=== PATIENT | male | born 1985 | race Caucasian/White ===

== ENCOUNTER 2022-10-28 11:59 | Inpatient (IN) | payer MEDICAID ==
[~2022-10-28] VITALS: Ht 182.9 cm; Wt 90.3 kg
[2022-10-28 12:23] VITALS: BP 117/73
[2022-10-28] MEDS ORDERED: KETOROLAC 30 MG/ML VIAL IVP ONE (12:50)
[2022-10-28] MEDS ORDERED: ONDANSETRON 4 MG/2 ML VIAL IVP ONE (12:50)
[2022-10-28] MEDS ORDERED: NACL 0.9% 1,000 ML IV ONE (12:50)
[2022-10-28] MEDS ORDERED: ONDANSETRON 4 MG/2 ML VIAL ONE ×2 (12:54→16:05)
[2022-10-28] MEDS ORDERED: KETOROLAC 30 MG/ML VIAL ONE ×2 (12:55→16:05)
--- NOTE | 2022-10-28 13:00 | NUR ---
blood drawn from iv 18g left ac and given to lab
--- NOTE | 2022-10-28 13:16 | NUR ---
37 y/o male bib self from home, c/o bl flank pain, abdominal pain, n/v that started this morning. pt is a&ox4, cambodian speaking, ambulates with steady gait. pt states he tried to take OTC medication with no relief, 8/ pain comes and goes. pmh: denies nka
[2022-10-28 13:17] LABS: BASOPHILS # (AUTO) 0.1 K/uL (0.00-0.22); BASOPHILS % (AUTO) 0.4 % (0.0-2.0); EOSINOPHILS % (AUTO) 0.1 % (0.0-4.0); HEMATOCRIT 41.7 % (36-52); HEMOGLOBIN 14.1 g/dL (12.0-18.0); LYMPHOCYTES # (AUTO) 0.7 K/uL (2.0-11.5); LYMPHOCYTES % (AUTO) 4.7 % (20.5-51.1); MEAN CORPUSCULAR HEMOGLOBIN 29 pg (27-31); MEAN CORPUSCULAR HGB CONC 34 g/dL (33-37); MEAN CORPUSCULAR VOLUME 87.1 fL (80-94); MONOCYTES # (AUTO) 0.6 K/uL (0.8-1.0); MONOCYTES % (AUTO) 3.8 % (1.7-9.3); NEUTROPHILS # (AUTO) 13.1 K/uL (1.8-7.7); PLATELET COUNT (AUTO) 260 K/uL (140-450); RED BLOOD CELL COUNT(AUTO) 4.79 MIL/uL (4.20-6.10); RED CELL DISTRIBUTION WIDTH 13.5 % (11.6-13.7); WHITE BLOOD COUNT (AUTO) 14.4 K/uL (4.8-10.8)
[2022-10-28 13:31] LABS: ALBUMIN 4.1 g/dL (3.4-5.0); ANION GAP 13.7 (8-16); CARBON DIOXIDE 24.9 mmol/L (21-32); CREATININE 0.9 mg/dL (0.6-1.3); POTASSIUM 3.6 mmol/L (3.5-5.1); TOTAL BILIRUBIN 0.8 mg/dL (0.0-1.0)
--- NOTE | 2022-10-28 13:38 | NUR ---
ASSUMED CARE, PT RETURN FR CT, PAIN IMPROVED
[2022-10-28 13:51] LABS: APPEARANCE,URINE CLEAR (CLEAR); BILIRUBIN,URINE NEGATIVE (NEGATIVE); BLOOD, URINE NEGATIVE (NEGATIVE); COLOR,URINE YELLOW (YELLOW); LEUKOCYTE ESTERASE ,URINE NEGATIVE (NEGATIVE); NITRITE, URINE NEGATIVE (NEGATIVE); PH,URINE 7.5 (5.0-9.0); UGLUCOSE NEGATIVE (NEGATIVE)
--- NOTE | 2022-10-28 13:56 | NUR ---
TESTICULAR U/S IN PROGRESS
[2022-10-28] MEDS ORDERED: PIPERACILLIN/TAZOBACTAM 3.375 GM in DEXTROSE 5% 50 ML IV ONE (14:00)
[2022-10-28] MEDS ORDERED: PIPERACILLIN/TAZOBACTAM 3.375 GM VIAL IV ONE (14:54)
--- NOTE | 2022-10-28 15:04 | NUR ---
SPOKE WITH DR HUMPHREYS ,SURGERY, ORDER RECEIVED
[2022-10-28] MEDS ORDERED: LIDOCAINE 1% 500 MG/50 ML VIAL ONE (15:47)
[2022-10-28] MEDS ORDERED: BUPIVACAINE-MPF/EPI 0.25% 30 ML VIAL INJ ONE (15:47)
[2022-10-28] MEDS ORDERED: DESFLURANE 240 ML BTL INH ONE (15:52)
[2022-10-28] MEDS ORDERED: fentaNYL citrate 0.05 MG/ML VIAL ONE (16:04)
[2022-10-28] MEDS ORDERED: PROPOFOL 200 MG/20 ML VIAL IV ONE (16:05)
[2022-10-28] MEDS ORDERED: SUCCINYLCHOLINE CHLORIDE 200 MG/10 ML VIAL IVP ONE (16:05)
[2022-10-28] MEDS ORDERED: ROCURONIUM 50 MG/5 ML VIAL IV ONE (16:05)
[2022-10-28] MEDS ORDERED: DEXAMETHASONE 4 MG/ML VIAL ONE (16:05)
[2022-10-28] MEDS ORDERED: HYDROmorphone PFS 2 MG/ML SYR ONE (16:06)
[2022-10-28] MEDS ORDERED: SUGAMMADEX SODIUM 200 MG/2 ML VIAL IV ONE (16:12)
[2022-10-28] MEDS ORDERED: HYDROmorphone 1 MG/ML AMP IVP PRN ×2 (16:35)
[2022-10-28] MEDS ORDERED: ONDANSETRON 4 MG/2 ML VIAL IVP PRN (16:35)
[2022-10-28] MEDS ORDERED: HYDROcodone/APAP 5/325 MG 1 TAB TAB PO PRN (16:35)
--- NOTE | 2022-10-28 16:48 | NUR ---
Patient's Plan of Care was discussed and reviewed with ELECTRICAL DESIGNER: VALERIA GROSS
[2022-10-28 17:00] VITALS: BP 126/80
--- NOTE | 2022-10-28 17:00 | NUR ---
PT ARRIVED TO [facility] UNIT VIA GURNEY FROM OR. PT IS AWAKE, AOX4. ABLE TO VERBALIZE NEEDS. RESPIRATIONS EVEN AND UNLABORED ON RA. SKIN WARM AND DRY. IV ON L ARM 18G, SL. PT COMPLAINS OF PAIN ON ABDOMEN INCISIONS BUT STATES "I WANT TO WAIT A LITTLE WHILE BEFORE I GET MEDICATION FOR THE PAIN." NO DISTRESS NOTED. PT WAS ORIENTED TO UNIT, ROOM, RESTROOM AND CALL LIGHT. ALL SAFETY PRECAUTIONS IN PLACE. CALL LIGHT WITHIN REACH. VS: TEMP 97.1, HR 84, BP 126/80, RESPIRATIONS 16 AND O2 SATURATING AT 99%.
--- NOTE | 2022-10-28 19:27 | NUR ---
ENDORSED PT TO FURNACE RELINER NURSE FOR CONTINUITY OF CARE. PT IS STABLE.
--- NOTE | 2022-10-28 19:28 | NUR ---
RECEIVED REPORT FROM DAY SHIFT NURSE. PATIENT RESTING COMFORTABLY WATCHING TV. NO ACUTE DISTRESS NOTED. BREATHING REGULAR NON LABORED. NO COMPLAINTS OF PAIN. AMBULATORY. CALL LIGHT ON EASY REACH.
[2022-10-28 20:00] VITALS: BP 125/84
[2022-10-29] MEDS ORDERED: POTASSIUM CHLORIDE 10 MEQ TABER PO PRN (00:45)
[2022-10-29] MEDS ORDERED: ONDANSETRON 4 MG/2 ML VIAL IVP PRN (00:45)
[2022-10-29] MEDS ORDERED: HYDROcodone/APAP 7.5/325 MG 1 TAB PO PRN (00:45)
[2022-10-29] MEDS ORDERED: ACETAMINOPHEN 325 MG TAB PO PRN (00:45)
[2022-10-29] MEDS ORDERED: MAG SULF 2000 MG/WATER PREMIX 50 ML IV PRN (00:45)
[2022-10-29 04:00] VITALS: BP 108/69
[2022-10-29 05:25] LABS: BASOPHILS % (AUTO) 0.1 % (0.0-2.0); HEMATOCRIT 38.9 % (36-52); LYMPHOCYTES # (AUTO) 1.4 K/uL (2.0-11.5); MEAN CORPUSCULAR HEMOGLOBIN 29 pg (27-31); MEAN CORPUSCULAR HGB CONC 34 g/dL (33-37); MEAN CORPUSCULAR VOLUME 87.1 fL (80-94); MONOCYTES # (AUTO) 0.8 K/uL (0.8-1.0); MONOCYTES % (AUTO) 6.5 % (1.7-9.3); NEUTROPHILS # (AUTO) 10.3 K/uL (1.8-7.7); NEUTROPHILS % (AUTO) 82.4 % (42.2-75.2); PLATELET COUNT (AUTO) 265 K/uL (140-450); RED BLOOD CELL COUNT(AUTO) 4.46 MIL/uL (4.20-6.10); RED CELL DISTRIBUTION WIDTH 13.2 % (11.6-13.7); WHITE BLOOD COUNT (AUTO) 12.5 K/uL (4.8-10.8)
[2022-10-29 06:00] LABS: ANION GAP 10.9 (8-16); CARBON DIOXIDE 25.9 mmol/L (21-32); CREATININE 0.8 mg/dL (0.6-1.3); POTASSIUM 3.8 mmol/L (3.5-5.1)
[2022-10-29 06:12] LABS: AMYLASE 44 U/L (25-115); CHOL/HDL RATIO 3.2 (1-4.5); FREE T4 (FREE THYROXINE) 0.89 ng/dL (0.76-1.46); HDL CHOLESTEROL 52 mg/dL (40-60); LDL (CALC) 108 mg/dL (60-100); LIPASE 54 U/L (73-393); MAGNESIUM 1.8 mg/dL (1.8-2.4); PHOSPHORUS 4.6 mg/dL (2.5-4.9); THYROID STIMULATING HORMONE 0.57 uIU/mL (0.34-3.74); TRIGLYCERIDES 35 mg/dL (30-150)
--- NOTE | 2022-10-29 07:23 | NUR ---
ENDORSED PATIENT TO AM NURSE FOR CONTINUITY OF CARE. PATIENT IN STABLE CONDITION.
--- NOTE | 2022-10-29 07:24 | NUR ---
RECEIVED REPORT FROM SLED MAKER NURSE, GABE, FOR CONTINUITY OF CARE. PT IN BED AT THIS TIME, ON HIS CELL PHONE. RESPIRATIONS ARE EVEN AND UNLABORED ON ROOM AIR. NO SIGNS OF DISTRESS NOTED. PT IS ALERT AND ORIENTED X4, ABLE TO VERBALIZE NEEDS, ABLE TO FOLLOW COMMANDS. PT IS GHANAIAN SPEAKING. PT IS 1 DAY S/P LAP APPENDECTOMY. PT HAS 3 SURGICAL SITES, CLOSED WITH DERMABOND, OPEN TO AIR. NO DRAINAGE NOTED, NO PAIN NOTED. PT ABD IS NONTENDER, NONDISTENDED WITH BOWEL SOUNDS PRESENT. PT IS CONTINENT OF BOWEL AND BLADDER, ABLE TO AMBULATE INDEPENDENTLY. PT HAS IV TO L ARM, 18G. PT IS NPO AT THIS TIME, WILL CLARIFY WITH HOSPITALIST FOLLOWING PT. CALL LIGHT WITHIN REACH. ALL SAFETY MEASURES IN PLACE.
[2022-10-29 08:00] VITALS: BP 105/69
[2022-10-29] MEDS: PIPERACILLIN/TAZOBACTAM 3.375 GM in DEXTROSE 5% 50 ML IV SCH ×2 (08:02→13:34)
[2022-10-29] MEDS: NACL 0.9% 1,000 ML IV SCH ×2 (08:02→10:48)
--- NOTE | 2022-10-29 08:02 | NUR ---
MEDICATION ZOSYN NOT ADMINISTERED BY HAT BLOCK MAKER AT 0500. CALLED PHARMACY, PER PHARMACY, OK TO ADMINISTER NOW. PHARMACY WILL ADJUST NEXT SCHEDULED DOSE. ALSO, DR PATEL MADE AWARE OF PT NPO ORDER. NEW DIETARY ORDERS RECEIVED.
--- NOTE | 2022-10-29 08:50 | NUR ---
PATIENT HAS BEEN SCREENED AND CATEGORIZED LOW NUTRITION RISK. PATIENT WILL BE SEEN WITHIN 7 DAYS OF ADMISSION. 11/04/22 REVIEWED BY SHAHEEN BARDALES RD
[2022-10-29] MEDS ORDERED: DOCUSATE SODIUM 100 MG GELCAP PO SCH (09:00)
[2022-10-29] MEDS ORDERED: PANTOPRAZOLE 40 MG INJ VIAL IVP SCH (09:00)
[2022-10-29] MEDS ORDERED: IBUP-1842 PO (10:52)
[2022-10-29] MEDS ORDERED: DOCU-299 PO (10:52)
--- NOTE | 2022-10-29 11:40 | NUR ---
DID ROUNDS ON PT. PT WALKING AROUND IN ROOM. DENIES ANY PAIN. STATES DR TOLD HIM HE WOULD BE DISCHARGED TODAY. INFORMED PT THAT WE NEED DISCHARGE ORDER BEFORE PT CAN DISCHARGE. PT VERBALIZED UNDERSTANDING.
--- NOTE | 2022-10-29 13:06 | NUR ---
PT CALLED NURSE TO ASK HER ABOUT HIS US OF TESTICLES. PT STATED "KEENA HAD THIS SMALL BUMP ON MY TESTICLE AND IT IS A BIT PAINFUL. IS THERE ANYTHING YOU GUYS ARE GOING TO DO ABOUT IT HERE". WENT OVER US RESULTS WITH PT. PT STATES HE WILL FOLLOW UP WITH HIS PCP ONCE HE DISCHARGES.
--- NOTE | 2022-10-29 15:10 | NUR ---
PT CONTINUES TO ASK WHEN HE IS GOING TO BE DISCHARGED. INFORMED PT THAT WE ARE AWAITING DR DISCHARGE ORDER. PT VERBALIZED UNDERSTANDING.
[2022-10-29 16:30] VITALS: BP 123/78
--- NOTE | 2022-10-29 17:11 | NUR ---
PT HAS DISCHARGE ORDER IN PLACE. WENT OVER DISCHARGE WITH PT. ANSWERED ALL QUESTIONS. PT SIGNED ALL PAPERWORK. REMOVED IV. IV CATHETER INTACT. ALL BELONGINGS TAKEN UPON DISCHARGE. PT DISCHARGED HOME WITH FAMILY.
== END 2022-10-29 17:10 | disposition home or self-care (01) | DRG 234 ==
LOC: MED 11:59 → MTU 14:25
PROC: 0DTJ4ZZ Resection of Appendix, Percutaneous Endoscopic Approach (ICD-10-PCS; principal; 2022-10-29)
DX: K35.80 Unspecified acute appendicitis (principal); R65.10 Systemic inflammatory response syndrome (SIRS) of non-infectious origin without acute organ dysfunction; N50.3 Cyst of epididymis; Z20.822 Contact with and (suspected) exposure to COVID-19; Z79.1 Long term (current) use of non-steroidal anti-inflammatories (NSAID); Z79.899 Other long term (current) drug therapy
CPT/HCPCS: 36415; 71045; 76870; 80048; 80053; 81003; 82150; 82374; 83036; 83605; 83690; 83735; 83880; 84100; 84439; 84443; 84484; 85025; 85610; 85730; 87040; 87081; 87491; 88304; 93005; 96361; 96365; 96375; 99285; C9113; J0330; J1100; J1170; J1644; J1885; J2001; J2405; J2543; J2704; J3010; J3490; J7030; J7060; J7120; Q0092

== ENCOUNTER 2023-05-25 10:49 | Emergency (ER) | payer MEDICAID ==
[~2023-05-25] VITALS: Ht 182.9 cm; Wt 92.5 kg
[~2023-05-25 10:49] MED LIST: DOCU-299 PO; IBUP-1842 PO
[2023-05-25 11:20] VITALS: BP 120/81; PULSE 81; RESP 14; TEMP 97; O2SAT 97
[2023-05-25] MEDS ORDERED: CAPS1ADH5 TP ×2 (14:15→14:19)
[2023-05-25] MEDS ORDERED: KETOROLAC 30 MG/ML VIAL IM ONE (14:15)
[2023-05-25] MEDS ORDERED: NAPR-1704 PO ×2 (14:15→14:19)
[2023-05-25 14:35] VITALS: BP 120/81; PULSE 81; RESP 14; TEMP 97; O2SAT 97
== END 2023-05-25 14:35 | disposition home or self-care (01) ==
LOC: MED 10:49
DX: S20.212A Contusion of left front wall of thorax, initial encounter (principal); Z79.899 Other long term (current) drug therapy; Z79.1 Long term (current) use of non-steroidal anti-inflammatories (NSAID); W01.0XXA Fall on same level from slipping, tripping and stumbling without subsequent striking against object, initial encounter; Y92.89 Other specified places as the place of occurrence of the external cause; Y93.89 Activity, other specified; Y99.8 Other external cause status
CPT/HCPCS: 71101; 96372; 99283; J1885

== ENCOUNTER 2023-07-30 19:49 | Emergency (ER) | payer MEDICAID, OTHER ==
[~2023-07-30] VITALS: Ht 180.3 cm; Wt 90.7 kg
[~2023-07-30 19:49] MED LIST changes: +CAPS1ADH5 TP; +NAPR-1704 PO
[2023-07-30 20:10] VITALS: BP 145/104; PULSE 88; RESP 16; TEMP 97.1; O2SAT 99
[2023-07-30 20:35] VITALS: O2SAT 99
[2023-07-30] MEDS: ALUMINUM HYD/MAG/SIMETHICONE 30 ML UDC PO ONE (20:44)
[2023-07-30 20:56] LABS: APPEARANCE,URINE CLEAR (CLEAR); BILIRUBIN,URINE NEGATIVE (NEGATIVE); BLOOD, URINE NEGATIVE (NEGATIVE); COLOR,URINE YELLOW (YELLOW); LEUKOCYTE ESTERASE ,URINE NEGATIVE (NEGATIVE); NITRITE, URINE NEGATIVE (NEGATIVE); PROTEIN,URINE NEGATIVE (NEGATIVE); UGLUCOSE NEGATIVE (NEGATIVE); UROBILINOGEN,URINE 0.2 EU/dL (0.2 - 1)
[2023-07-30 20:58] LABS: BASOPHILS # (AUTO) 0.1 K/uL (0.00-0.22); BASOPHILS % (AUTO) 1.2 % (0.0-2.0); EOSINOPHILS # (AUTO) 0.2 K/uL (0-0.4); EOSINOPHILS % (AUTO) 2.8 % (0.0-4.0); HEMATOCRIT 45.9 % (36-52); HEMOGLOBIN 15.9 g/dL (12.0-18.0); LYMPHOCYTES % (AUTO) 37.4 % (20.5-51.1); MEAN CORPUSCULAR HEMOGLOBIN 30 pg (27-31); MEAN CORPUSCULAR HGB CONC 35 g/dL (33-37); MEAN CORPUSCULAR VOLUME 86.4 fL (80-94); MONOCYTES # (AUTO) 0.6 K/uL (0.8-1.0); MONOCYTES % (AUTO) 7.2 % (1.7-9.3); NEUTROPHILS # (AUTO) 4.1 K/uL (1.8-7.7); NEUTROPHILS % (AUTO) 51.4 % (42.2-75.2); PLATELET COUNT (AUTO) 317 K/uL (140-450); RED BLOOD CELL COUNT(AUTO) 5.31 MIL/uL (4.20-6.10); RED CELL DISTRIBUTION WIDTH 13.5 % (11.6-13.7); WHITE BLOOD COUNT (AUTO) 7.9 K/uL (4.8-10.8)
[2023-07-30] MEDS: ONDANSETRON 4 MG ODT PO ONE (21:08)
[2023-07-30 21:14] LABS: ANION GAP 12.5 (8-16); CREATININE 1.1 mg/dL (0.6-1.3); POTASSIUM 3.5 mmol/L (3.5-5.1)
[2023-07-30 21:17] LABS: ALANINE AMINOTRANSFERASE 43 U/L (12-78); ALBUMIN 4.2 g/dL (3.4-5.0); ALKALINE PHOSPHATASE 65 U/L (50-136); ASPARTATE AMINOTRANSFERASE 23 U/L (15-37); BILIRUBIN,DIRECT 0.1 mg/dL (0.0-0.3); LIPASE 45 U/L (16-77); TOTAL BILIRUBIN 0.4 mg/dL (0.0-1.0)
[2023-07-30] MEDS ORDERED: FAMO-90 PO (21:46)
[2023-07-30] MEDS ORDERED: SUCR1TAB35 PO (21:46)
[2023-07-30] MEDS: KETOROLAC 30 MG/ML VIAL IM ONE (21:50)
[2023-07-30 22:10] VITALS: BP 135/88; PULSE 71; RESP 16; TEMP 98.2; O2SAT 99
== END 2023-07-30 22:10 | disposition home or self-care (01) ==
LOC: MED 19:49
DX: K29.70 Gastritis, unspecified, without bleeding (principal); R07.81 Pleurodynia; Z79.899 Other long term (current) drug therapy
CPT/HCPCS: 36415; 71045; 76870; 80048; 80076; 81003; 83690; 84484; 85025; 93005; 96372; 99285; J1885; Q0092; Q0162

== ENCOUNTER 2023-08-24 23:09 | Emergency (ER) | payer OTHER ==
[~2023-08-24] VITALS: Ht 182.9 cm; Wt 92.5 kg
[~2023-08-24 23:09] MED LIST changes: +FAMO-90 PO; +SUCR1TAB35 PO
[2023-08-24 23:30] VITALS: O2SAT 98
[2023-08-24 23:35] VITALS: BP 117/82; PULSE 78; RESP 17; TEMP 97.8; O2SAT 97
[2023-08-25 01:00] LABS: APPEARANCE,URINE CLEAR (CLEAR); BILIRUBIN,URINE NEGATIVE (NEGATIVE); BLOOD, URINE NEGATIVE (NEGATIVE); COLOR,URINE YELLOW (YELLOW); LEUKOCYTE ESTERASE ,URINE NEGATIVE (NEGATIVE); NITRITE, URINE NEGATIVE (NEGATIVE); PROTEIN,URINE NEGATIVE (NEGATIVE); UGLUCOSE NEGATIVE (NEGATIVE); UROBILINOGEN,URINE 0.2 EU/dL (0.2 - 1)
[2023-08-25 01:04] LABS: ANION GAP 10.3 (8-16); CALCIUM 8.5 mg/dL (8.5-10.1); CARBON DIOXIDE 28.4 mmol/L (21-32); CREATININE 1.1 mg/dL (0.6-1.3); POTASSIUM 3.7 mmol/L (3.5-5.1)
[2023-08-25 01:31] LABS: BASOPHILS # (AUTO) 0.1 K/uL (0.00-0.22); BASOPHILS % (AUTO) 1.1 % (0.0-2.0); EOSINOPHILS # (AUTO) 0.4 K/uL (0-0.4); HEMOGLOBIN 14.2 g/dL (12.0-18.0); LYMPHOCYTES % (AUTO) 46.9 % (20.5-51.1); MEAN CORPUSCULAR HEMOGLOBIN 29 pg (27-31); MEAN CORPUSCULAR HGB CONC 34 g/dL (33-37); MEAN CORPUSCULAR VOLUME 86.9 fL (80-94); MONOCYTES # (AUTO) 0.6 K/uL (0.8-1.0); MONOCYTES % (AUTO) 8.7 % (1.7-9.3); NEUTROPHILS # (AUTO) 2.4 K/uL (1.8-7.7); NEUTROPHILS % (AUTO) 37.3 % (42.2-75.2); PLATELET COUNT (AUTO) 266 K/uL (140-450); RED BLOOD CELL COUNT(AUTO) 4.84 MIL/uL (4.20-6.10); RED CELL DISTRIBUTION WIDTH 13.2 % (11.6-13.7); WHITE BLOOD COUNT (AUTO) 6.4 K/uL (4.8-10.8)
[2023-08-25] MEDS ORDERED: NAPR-54 PO (02:16)
[2023-08-25] MEDS: KETOROLAC 30 MG/ML VIAL IM ONE (02:34)
== END 2023-08-25 02:59 | disposition home or self-care (01) ==
LOC: MED 23:09
DX: N43.3 Hydrocele, unspecified (principal); Z79.899 Other long term (current) drug therapy
CPT/HCPCS: 36415; 74176; 76870; 80048; 81003; 85025; 96372; 99285; J1885

== ENCOUNTER 2023-11-07 15:01 | Emergency (ER) | payer OTHER ==
[~2023-11-07] VITALS: Ht 182.9 cm; Wt 91.6 kg
[~2023-11-07 15:01] MED LIST changes: +NAPR-337 PO; +SUCR-3 PO; -SUCR1TAB35 PO
[2023-11-07 15:59] VITALS: BP 128/102; PULSE 106; RESP 24; TEMP 98; O2SAT 99
[2023-11-07] MEDS ORDERED: ATA25 PO (17:18)
[2023-11-07 17:44] VITALS: BP 129/91; PULSE 93; RESP 18; O2SAT 100
== END 2023-11-07 17:44 | disposition home or self-care (01) ==
LOC: MED 15:01
DX: F41.9 Anxiety disorder, unspecified (principal); F10.10 Alcohol abuse, uncomplicated; F14.10 Cocaine abuse, uncomplicated; Z79.899 Other long term (current) drug therapy; Z90.49 Acquired absence of other specified parts of digestive tract; Y90.9 Presence of alcohol in blood, level not specified
CPT/HCPCS: 93005; 99283

== ENCOUNTER 2023-11-13 06:22 | Emergency (ER) | payer OTHER ==
[~2023-11-13] VITALS: Ht 182.9 cm; Wt 90.7 kg
[~2023-11-13 06:22] MED LIST changes: +ATA25 PO
[2023-11-13 06:30] VITALS: BP 135/92; PULSE 88; RESP 16; TEMP 96.1; O2SAT 99
[2023-11-13 07:22] LABS: FLU A ANTIGEN negative (NEGATIVE); FLU B ANTIGEN negative (NEGATIVE)
[2023-11-13] MEDS ORDERED: BENZ-300 PO (08:27)
[2023-11-13] MEDS ORDERED: BENZ200C4 PO (08:27)
[2023-11-13 08:41] VITALS: BP 135/92; PULSE 88; RESP 16; TEMP 96.1; O2SAT 99
== END 2023-11-13 08:41 | disposition home or self-care (01) ==
LOC: MED 06:22
DX: J06.9 Acute upper respiratory infection, unspecified (principal); Z20.822 Contact with and (suspected) exposure to COVID-19; Z79.899 Other long term (current) drug therapy
CPT/HCPCS: 71045; 87081; 87426; 87804; 99284; Q0092

== ENCOUNTER 2024-01-19 12:02 | Emergency (ER) | payer OTHER ==
[~2024-01-19] VITALS: Ht 175.3 cm; Wt 86.2 kg
[~2024-01-19 12:02] MED LIST changes: +BENZ-300 PO; +BENZ200C4 PO
[2024-01-19 12:10] VITALS: BP 131/90; PULSE 77; RESP 17; TEMP 97.7; O2SAT 99
[2024-01-19] MEDS ORDERED: PRED20TA5 PO (13:30)
[2024-01-19] MEDS ORDERED: DIPH25TA53 PO (13:30)
== END 2024-01-19 13:47 | disposition home or self-care (01) ==
LOC: MED 12:02
DX: R21 Rash and other nonspecific skin eruption (principal); L29.9 Pruritus, unspecified; K62.89 Other specified diseases of anus and rectum; Z79.899 Other long term (current) drug therapy; Z90.49 Acquired absence of other specified parts of digestive tract
CPT/HCPCS: 99283

== ENCOUNTER 2024-02-01 13:46 | Emergency (ER) | payer OTHER ==
[~2024-02-01] VITALS: Ht 182.9 cm; Wt 90.7 kg
[~2024-02-01 13:46] MED LIST changes: +DIPH25TA53 PO; +PRED20TA5 PO
[2024-02-01 13:59] VITALS: BP 139/90; PULSE 90; RESP 19; TEMP 98.2; O2SAT 96
[2024-02-01] MEDS ORDERED: LOTC TP (14:35)
[2024-02-01] MEDS ORDERED: KEN.1O TP (14:35)
== END 2024-02-01 14:52 | disposition home or self-care (01) ==
LOC: MED 13:46
DX: R21 Rash and other nonspecific skin eruption (principal); L29.9 Pruritus, unspecified; Z79.899 Other long term (current) drug therapy
CPT/HCPCS: 99283